=== PATIENT | female | born 1975 | race Caucasian/White ===

== ENCOUNTER → 2018-07-21 07:21 | Outpatient (CLI) | payer SELFPAY ==
--- NOTE | 2018-07-21 07:24 | NM_ITS ---
CLINICAL: 43-year-old female with apparent history of clinical thyrotoxicosis. I-123 THYROID UPTAKE and SCAN COMPARISON: None available FINDINGS: The patient was administered a 342 uCi I-123 capsule by mouth. The 4-hour I-123 radioactive iodine thyroidal uptake was calculated to be 19.7 % (normal 5 to 25 %). The 24-hour I-123 radioactive iodine thyroidal uptake was calculated to be 49.4 % (normal 5 to 40 %). The I-123 thyroid scan demonstrates homogeneous radiopharmaceutical concentration throughout both lobes of a U-shaped thyroid gland. There are no colloidal parenchymal hypofunctioning-cold nodules noted in either lobe of the thyroid gland. NM/Thyroid Uptake Single or Mult IMPRESSION: 1. UPPER LIMITS OF NORMAL 4- and ABNORMAL ELEVATED 24-hour I-123 radioactive iodine thyroidal uptakes. 2. 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 Correlation with the results of in vitro thyroid function studies is recommended. 3. No hypofunctioning-cold nodules are identified. Electronically Signed: Kenny Torres DO at 22:56 EST Tel , Service support ,
== END ==
PROVIDERS: Family Provider Internal Medicine; PCP Internal Medicine; Referring Provider Internal Medicine; Visit Provider Internal Medicine
DX: R79.89 Other specified abnormal findings of blood chemistry (principal)
CPT/HCPCS: 78012; A9516

== ENCOUNTER → 2019-02-18 | Outpatient (CLI) | payer SELFPAY ==
--- NOTE | 2019-02-18 09:39 | MRI_ITS ---
STUDY: MRI LEFT HIP REASON FOR EXAM: Female, 43 years old. Left hip and buttock pain. TECHNIQUE: Standardized fat and water weighted pulse sequences were obtained in all 3 orthogonal planes. COMPARISON: None. FINDINGS: Normal hip joint without articular joint space narrowing. There is small joint effusion. Normal acetabulum. Normal labrum. Normal femoral head. Normal femoral neck and intratrochanteric region. There is no demonstrated fracture. Normal gluteus minimus, medius and iliopsoas tendons and distal insertions. There is no trochanteric, iliopsoas or iliopectineal bursitis. Normal superior and inferior pubic rami. Normal pubic symphysis. Normal ischial tuberosity. Normal origin of the hamstring tendons. Normal visualized iliac wing, sacroiliac joint, and sacral ala. Normal visualized soft tissue structures of the pelvis. There is 2.0 cm left adnexal cyst. There are nabothian cysts of the cervix. There is a tampon in the vagina. MRI/Lower Ext Joint Only (Routine) IMPRESSION: No fracture or avascular necrosis. Joint space of the hip is well-preserved. Left adnexal cyst. Electronically Signed: Bobo Chi MD at 11:37 EDT , Service support ,
== END | disposition home or self-care (01) ==
PROVIDERS: Family Provider Nurse Practitioner; PCP Nurse Practitioner; Referring Provider Anesthesiology Pain Medicine; Visit Provider Anesthesiology Pain Medicine
DX: M25.552 Pain in left hip (principal); R20.8 Other disturbances of skin sensation
CPT/HCPCS: 73721

== ENCOUNTER 2019-03-08 14:12 | Emergency (ER) | payer SELFPAY ==
[2019-03-08 14:13] VITALS: BP 195/126; PULSE 127; RESP 17; TEMP 35.9; O2SAT 98; BMI 25.6
--- NOTE | 2019-03-08 15:16 | US_ITS ---
STUDY: ULTRASOUND OF THE FEMALE PELVIS - COMPLETE REASON FOR EXAM: Female, 43 years old. Left pelvic pain. LMP: February 17, 2019. TECHNIQUE: Transvaginal TECHNICAL QUALITY: Adequate. COMPARISON: None. FINDINGS: The uterus is anteverted and is in a midline position. The uterus measures 8.6 x 4.5 x 3.9 cm. There were a few small Nabothian cysts of the cervix. One or more of these may also be prominent endometrial glands in the lowermost uterine segment. The endometrium measures 11.0 mm in thickness, and is hyperechoic. There is no demonstrated endometrial mass. There is no demonstrated myometrial mass. I.U.D. - The patient does not have an I.U.D. The right ovary is visualized. The right ovary measures 2.6 x 1.3 x 1.9 cm. There is no right ovarian cyst or ovarian mass. There is no visualized right adnexal mass or complex lesion. There is normal arterial and normal venous vascularity. The left ovary is visualized. The left ovary measures 2.7 x 1.5 x 1.4 cm. This includes a well-defined 1.3 x 1.1 x 1.4 cm anechoic cyst consistent with a follicle. A second, simple appearing 2.5 x 2.2 x 2.1 cm cyst is also identified. There is no visualized left adnexal mass or complex lesion. There is normal arterial and normal venous vascularity. There is no fluid in the cul-de-sac. Polycystic ovary disease: No. US/Transvaginal Non- IMPRESSION: 1. 2 simple appearing, likely functional cysts in the left ovary, as described. One might consider follow-up immediately after the next 1-2 menstrual cycles to document physiologic evolution. 2. Mildly thickened endometrium, likely physiologic. 3. The right ovary is unremarkable. Electronically Signed: Misha Colvin MD at 17:11 EDT , Service support ,
[2019-03-08] MEDS: Ondansetron 4 MG/2 ML Vial IV (15:48)
[2019-03-08] MEDS: 0.9% Normal Saline 1,000 ML 1000 ML IV (15:48)
[2019-03-08] MEDS: Morphine 4 MG/ML Syringe IV (15:48)
[2019-03-08 16:00] LABS: Absolute Lymphocyte Count 1.33 X10^3/uL (0.83-4.51); Absolute Neutrophil Count 5.5 X10^3/uL (2.0-7.7); Basophil# 0.05 X10^3/uL; Basophil% 0.7 % (0-1); Eosinophil# 0.13 X10^3/uL; Eosinophils% 1.7 % (0-5); Hematocrit 42.6 % (37-47); Hemoglobin 14.8 g/dL (12.0-15.0); Lymphocyte # 1.33 X10^3/ul (4.0); Lymphocyte % 17.8 % (19-41); Mean Corp Hgb Conc 34.7 g/dL (32-36); Mean Corpuscular Volume 95.1 fL (81-99); Mean Platelet Vol. 9.1 fl (6.2-12.0); Monocyte# 0.48 X10^3/uL; Monocyte% 6.4 % (0-10); NRBC Flagged by Analyzer 0 % (0-5); Neutrophil # 5.45 X10^3/uL (2.7-7.7); Platelet Count 387 K/mm3 (150-450); RBC Distribution Width CV 12.7 % (11.6-14.6); RBC Distribution Width SD 44.2 fl (35.1-43.9); Red Blood Count 4.48 M/mm3 (4.2-5.4); White Blood Count 7.5 K/mm3 (4.4-11.0)
[2019-03-08 16:30] LABS: Anion Gap 8 (5-15); BUN 13 mg/dL (7-18); BUN/Creat Ratio 14.3 RATIO (10-20); Calcium,Total 9.5 mg/dL (8.5-10.1); Chloride 101 mmol/L (98-107); Creatinine, Serum 0.91 mg/dL (0.55-1.02); EST Glomerular Filtration Rate 71 mL/min (>60); Est Glom Filt Rate - Afr Amer 86 mL/min (>60); Estimated Creatinine Clearance 68.12 ml/min; Glucose 110 mg/dL (74-106); Potassium 3.7 mmol/L (3.5-5.1); Sodium Level 136 mmol/L (136-145)
[2019-03-08 16:44] LABS: Bacteria 0 SEEN /hpf (None Seen); Red Blood Cells-Urine 0 SEEN /hpf (0-5)
[2019-03-08 16:51] LABS: Internal QC Validated? YES +Cl - CLEAR BKGD; Pregnancy, Serum, hCG Quali. NEGATIVE Negative
[2019-03-08 17:20] LABS: Color, Urine Yellow (Yellow); Glucose, Dipstick Normal (Normal); Ketone-Dipstick 5 mg/dl (Negative); Leukocyte Esterase-Dipstick 25 /ul (Negative); Nitrite-Dipstick Negative (Negative); Occult Blood-Urine Negative /ul (Negative); Protein-Dipstick 15 mg/dl (Negative); Urine Bilirubin Dipstick Negative (Negative); Urine Clarity Cloudy (Clear); Urine Urobilinogen Normal (Normal)
[2019-03-08 17:30] LABS: Mucous, Urine 1+ /hpf (<or=2+); Squamous Epithelial Cells - UA 10-25 SEEN /hpf (5-10); White Blood Cells 0-5 SEEN /hpf (0-5)
[2019-03-08 18:08] VITALS: BP 105/54; O2SAT 95
--- NOTE | 2019-03-08 18:16 | ED.VISSUMM ---
- ER Visit Summary Date of Service: 03/08/19 Chief Complaint: Left lower quadrant abdominal pain History of Present Illness: The patient is a 43 F who presents with abdominal pain that has been getting worse over the past several days. Patient states the pain is over the left lower quadrant. Patient states she had a recent MRI which showed a nabothian cyst as well as a left adnexal cyst. Patient states the pain is sharp and burning. Patient states the pain is localized to the left lower abdomen. Patient states pain is worse with walking. Patient states she has seen pain management for this. Patient was prescribed Naprosyn for this. Patient denies any nausea or vomiting. Patient denies any diarrhea. Patient states her last menstrual period was on 02/17/2019. Patient denies any dysuria or hematuria. Physical Examination: Vital signs are stable except for mildly elevated blood pressure 195/126 and a tachycardia of 127. Patient is afebrile. Patient is in no acute distress. Oral mucosa is pink and moist. Neck is supple. Trachea is midline. There is no JVD noted. Heart was regular rate and rhythm. Lungs are clear and equal bilateral. Abdomen is soft. Bowel sounds are normal. There is tenderness over the left lower quadrant. There is no rebound or guarding noted. Cranial nerves II through XII are intact. There are no focal motor or sensory deficits noted. Test Results: CBC, basic metabolic profile, serum hCG, and urinalysis were obtained were all essentially within normal limits. Ultrasound of the pelvis was obtained. There are 2 simple left ovarian cyst. There is no evidence of any torsion. Emergency Department Course and Treatment: Patient was given a dose of morphine and Zofran here. Patient was feeling better on reevaluation. Patient was instructed to follow-up with [facility] in 5 to 7 days for further evaluation of her ovarian cyst. Patient was instructed to continue her Naprosyn as needed for pain. Patient understood and was agreeable with the plan. All questions were answered. Disposition: Discharge home Impression: Left ovarian cyst This note was generated with [employer] dictation software. It may contain incorrect words, spelling, and punctuation that were not noted in review of the chart prior to signing ED Disposition - Plan for ED Patient: Disposition: Home or Assisted Living Diagnosis: Left ovarian cyst, Pelvic pain Instructions: Ovarian Cyst Referrals: Sirena Guzmán NP-C [Primary Care Provider] - 3-5 Days
== END 2019-03-08 18:48 | disposition home or self-care (01) ==
PROVIDERS: Emergency Provider Emergency Medicine; Family Provider Nurse Practitioner; PCP Nurse Practitioner
DX: N83.202 Unspecified ovarian cyst, left side (principal); E03.9 Hypothyroidism, unspecified; Z79.899 Other long term (current) drug therapy
CPT/HCPCS: 76830; 80048; 81001; 84703; 85025; 96361; 96374; 96375; 99284; J7030; A4216; J2405